=== PATIENT | female | born 1980 | race Two or more races ===

== ENCOUNTER 2016-10-02 07:15 | Inpatient (IN) | payer BC ==
[~2016-10-02 07:15] MED LIST: CALCIUM500 M1 PO; IRON1 TA1 PO; MOTRIN800 MG PO; PRENATAL1 EACH PO
[2016-10-02 07:55] LABS: BASO % 0.1 % (0-2); EOSINOPHIL ABSOLUTE COUNT 0.1 tho/cmm (0.0-0.7); HCT-HEMATOCRIT 27.2 % (34.0-49.0); HGB-HEMOGLOBIN 8.6 gm/dl (12.0-15.5); IMMATURE GRANULOCYTES ABSOLUTE 0.06 tho/cmm (0-0.03); IMMATURE GRANULOCYTES PERCENT 0.7 % (0-0.3); LYMPH % 22.5 % (20-45); MCHC MEAN CORPUSCULAR HGB CONC 31.6 % (32.0-36.0); MCV (MEAN CELL VOLUME) 75.8 fl (82.0-96.0); MEAN PLATELET VOLUME 10.8 cmc (9.4-12.4); MONOCYTE ABSOLUTE COUNT 0.6 tho/cmm (0.0-1.2); NEUTROPHIL ABSOLUTE COUNT 6.1 tho/cmm (1.6-8.0); NEUTROPHIL-AUTOMATED 6.1 tho/cmm (1.6-8.0); NEUTROPHILS % 68.7 % (40-80); PLATELET COUNT 320 tho/cmm (150-450); RED BLOOD COUNT 3.59 mil/cmm (4.00-5.20); RED CELL DISTRIBUTION WIDTH 14.9 % (12.4-16.4); WHITE BLOOD COUNT 8.8 tho/cmm (4.0-10.0)
[2016-10-02 10:25] LABS: CORD BLOOD PH ARTERIAL 7.3 Units (7.18-7.38)
[2016-10-03 06:01] LABS: BASO % 0.1 % (0-2); EOS % 0.2 % (0-7); HGB-HEMOGLOBIN 6.5 gm/dl (12.0-15.5); IMMATURE GRANULOCYTES ABSOLUTE 0.08 tho/cmm (0-0.03); IMMATURE GRANULOCYTES PERCENT 0.6 % (0-0.3); LYMPH % 17.9 % (20-45); LYMPH ABSOLUTE COUNT 2.5 tho/cmm (0.8-4.5); MCH (MEAN CORPUSCULAR HGB) 23.9 pg (28.0-32.0); MCV (MEAN CELL VOLUME) 76.5 fl (82.0-96.0); MEAN PLATELET VOLUME 10.5 cmc (9.4-12.4); MONO % 8.1 % (0-12); MONOCYTE ABSOLUTE COUNT 1.2 tho/cmm (0.0-1.2); NEUTROPHIL ABSOLUTE COUNT 10.4 tho/cmm (1.6-8.0); NEUTROPHIL-AUTOMATED 10.4 tho/cmm (1.6-8.0); NEUTROPHILS % 73.1 % (40-80); PLATELET COUNT 250 tho/cmm (150-450); RED BLOOD COUNT 2.72 mil/cmm (4.00-5.20); RED CELL DISTRIBUTION WIDTH 15.2 % (12.4-16.4)
[2016-10-03 06:03] LABS: HCT-HEMATOCRIT 20.8 % (34.0-49.0); MCHC MEAN CORPUSCULAR HGB CONC 31.3 % (32.0-36.0); WHITE BLOOD COUNT 14.2 tho/cmm (4.0-10.0)
[2016-10-03 21:54] LABS: HGB-HEMOGLOBIN 8.3 gm/dl (12.0-15.5)
[2016-10-04 06:32] LABS: BASO % 0.2 % (0-2); EOS % 1.2 % (0-7); EOSINOPHIL ABSOLUTE COUNT 0.1 tho/cmm (0.0-0.7); HGB-HEMOGLOBIN 8.4 gm/dl (12.0-15.5); IMMATURE GRANULOCYTES ABSOLUTE 0.07 tho/cmm (0-0.03); IMMATURE GRANULOCYTES PERCENT 0.7 % (0-0.3); LYMPH % 25.6 % (20-45); LYMPH ABSOLUTE COUNT 2.6 tho/cmm (0.8-4.5); MCH (MEAN CORPUSCULAR HGB) 24.5 pg (28.0-32.0); MCHC MEAN CORPUSCULAR HGB CONC 31.8 % (32.0-36.0); MEAN PLATELET VOLUME 10.1 cmc (9.4-12.4); MONO % 6.4 % (0-12); MONOCYTE ABSOLUTE COUNT 0.7 tho/cmm (0.0-1.2); NEUTROPHIL ABSOLUTE COUNT 6.7 tho/cmm (1.6-8.0); NEUTROPHIL-AUTOMATED 6.7 tho/cmm (1.6-8.0); NEUTROPHILS % 65.9 % (40-80); PLATELET COUNT 250 tho/cmm (150-450); RED BLOOD COUNT 3.43 mil/cmm (4.00-5.20); RED CELL DISTRIBUTION WIDTH 15.7 % (12.4-16.4); WHITE BLOOD COUNT 10.2 tho/cmm (4.0-10.0)
[2016-10-04 06:34] LABS: HCT-HEMATOCRIT 26.4 % (34.0-49.0)
[2016-10-06] MEDS ORDERED: IBUPROFEN800 M1 PO (10:05)
[2016-10-06] MEDS ORDERED: PERCOCET 5-3251 EACH PO (10:08)
[2016-10-06] MEDS ORDERED: FEROSUL325 M1 PO (10:10)
[2016-10-06] MEDS ORDERED: COLACE100 M1 PO (10:11)
[2017-01-26] MEDS ORDERED: PRENATAL-U CAPS1 CAP PO (12:14)
== END 2016-10-06 18:00 | DRG 765 ==
LOC: LDR 07:15 → OBGD 11:00 → OBGE 10-03 20:45
PROVIDERS: Specialist; ADMIT Advanced Practice Midwife
PROC: 10D00Z1 Extraction of Products of Conception, Low, Open Approach (ICD-10-PCS; principal; 2016-10-02)
DX: O44.03 Complete placenta previa NOS or without hemorrhage, third trimester (principal); D62 Acute posthemorrhagic anemia; O32.1XX0 Maternal care for breech presentation, not applicable or unspecified; O99.02 Anemia complicating childbirth; O24.420 Gestational diabetes mellitus in childbirth, diet controlled; Z3A.37 37 weeks gestation of pregnancy; Z37.0 Single live birth
CPT/HCPCS: J0690; J2270; J2590; J7050; P9016